=== PATIENT | male | born 1985 | race Caucasian/White ===

== ENCOUNTER 2017-12-17 07:35 | Emergency (ER) | payer OTHER, MEDICAID, SELFPAY ==
[2017-12-17] VITALS (8 sets, daily range): BP systolic 106–140; BP diastolic 57–71; PULSE 49–60; RESP 8–18; TEMP 36.4; O2SAT 100
--- NOTE | 2017-12-17 07:43 | ED.CHESTPAIN ---
HPI - Chest Pain General Chief Complaint: Chest Pain Stated Complaint: CHEST PAIN,TINGLY ARMS Time Seen by Provider: 12/17/17 07:43 Source: patient Mode of arrival: ambulatory Limitations: no limitations History of Present Illness HPI narrative: 32-year-old male with a history of myocarditis and GERD presents with severe chest pain that awakened him from sleep this morning at 7:00 a.m.. He states it felt similar to when he had myocarditis 4 years ago in [place]. His pain lasted for about 5 min. He called the medics and they came and evaluated him. At that time his pain and other symptoms had completely resolved except for some tingling in his arms which began after the chest pain. He notes the chest pain was associated with deep breathing to get through the pain. There is no nausea, vomiting, or diaphoresis. He sent the medics away but when his pain recurred while driving he came to the emergency department. It lasted for 30 sec to a minute and then resolved. While here he had another episode that was witnessed by myself and he was very anxious appearing, tachypneic with deep breathing, and resolved after I reassured him that he was in a safe place and we would help him. We also laid his bed back and he notes this helped with his symptoms. He notes that he was hospitalized for several days in [place] and given ibuprofen and he had an echocardiogram, however he does not remember the results. He has not seen a [facility] in follow-up since that episode, nor has he had recurrence of his symptoms until today. He denies a history of anxiety or panic attacks. He notes that he is breathing deep during these episodes because it helps with the pain, but denies shortness of breath. Duration: intermittent Onset: during rest Pain location: epigastric Severity: severe Related Data Home Medications Medication Instructions Recorded Confirmed omeprazole magnesium [Prilosec OTC] 20 mg PO Q DAY #0 05/03/16 12/17/17 Allergies Allergy/AdvReac Type Severity Reaction Status Date / Time dust mites Allergy Intermediate sneezing, Uncoded 10/16/17 12:38 throat irritation, runny nose, itchy eyes Review of Systems Review of Systems All systems reviewed & are unremarkable except as noted in HPI and below Constitutional Denies chills, Denies fever(s), Denies lethargy and Denies weakness Eyes Denies change in vision, Denies eye discharge, Denies irritation and Denies loss of vision ENT Ears, Nose, Mouth, and Throat: Denies change in voice, Denies neck pain and Denies sore throat Cardiovascular Reports chest pain, Denies irregular heart rhythm, Denies lightheadedness, Denies palpitations, Denies dyspnea, Denies dyspnea on exertion and Denies orthopnea Respiratory Denies cough, Denies dyspnea, Denies dyspnea on exertion and Denies wheezing Gastrointestinal Gastrointestinal: Denies abdominal pain, Denies change in bowel habits, Denies diarrhea, Denies nausea and Denies vomiting Genitourinary Denies hematuria, Denies flank pain, Denies urinary incontinence and Denies urinary urgency Musculoskeletal Denies neck pain Integumentary/Breasts Denies pruritus, Denies erythema, Denies rash and Denies wounds Neurologic Denies confusion, Denies loss of vision and Denies weakness Psychiatric Denies anxiety, Denies confusion, Denies depression, Denies homicidal ideation and Denies suicidal ideation Endocrine Denies palpitations Hematologic/Lymphatic Denies easy bruising Allergic/Immunologic Denies wheezing PFSH Surgical History Status post appendectomy Family History Grandfather Heart disease Mental health problem Mother Hyperlipidemia Grandfather Heart disease Grandmother Cancer Social History Smoking Status: Former smoker Exam Initial Vital Signs Initial Vital Signs: Vital Signs Temperature 97.6 F 12/17/17 07:51 Pulse Rate 56 L 12/17/17 07:51 Respiratory Rate 18 12/17/17 07:51 Blood Pressure 140/57 H 12/17/17 07:51 Pulse Oximetry 100 12/17/17 07:51 Const General: cooperative and well developed Nutritional Appearance: well nourished Orientation: alert, awake, oriented x3 and not confused [facility] Head: normocephalic and atraumatic Ears: external ears normal and TM's normal bilaterally Nose: external nose normal and No nasal discharge Face and sinus: sinuses nontender, face symmetric, no sinus tenderness and No dry mucous membranes Mouth: oral mucosae normal and moist mucous membranes Teeth and gingiva: dentition normal Throat: tonsils normal and uvula midline Eyes General: appearance normal, both eyes and all related structures Eyelids: eyelids normal Conjunctivae: conjunctivae normal Sclera: sclerae normal Pupils: PERRL EOM: EOM intact bilaterally Neck Neck: normal visual inspection, trachea midline, No lymphadenopathy, No midline deformity and No JVD Lymphatic: No lymphedema Chest Chest: normal inspection of the chest Resp Effort & Inspection: normal respiratory effort, able to speak in complete sentences, no respiratory distress and no use of accessory muscles Auscultation: clear to auscultation bilaterally, no rales, no rhonchi and no wheezes Cardio Rate: regular rate Rhythm: regular rhythm Heart Sounds: no click, no gallops, no murmurs and no rubs Pulses: normal peripheral pulses GI Inspection: non-distended Palpation: soft, no hepatosplenomegaly, No guarding, No pulsatile mass and No tender Auscultation: normal bowel sounds Back/Spine/Pelvis Back: No CVA tenderness Cervical Spine: cervical ROM normal and No pain with cervical ROM Thoracic/Lumbar Spine: thoracic and lumbar spine normal to inspection Skin General: no rashes or lesions noted, No jaundice and No petechiae Neuro General: alert, oriented x3, gait normal and no focal motor deficits Speech: speech normal Extrem General: full ROM, no clubbing, cyanosis or edema, no pedal edema and no calf tenderness Psych Appearance: well kempt Mental Status: mental status grossly normal Attitude: cooperative Thought Content: normal and suicidality Judgment: judgment good Course Orders Ordered: ED Orders 12/17/17 12:50 Troponin I Stat Discontinued Medications Al Hydrox/Mg Hydrox/Simethicone 20 ml/ Lidocaine HCl 15 ml 0 ml PO NOW ONE Stop: 12/17/17 10:14 Last Admin: 12/17/17 10:36 Dose: 35 ml Sodium Chloride (Normal Saline 0.9%) 1,000 mls @ 150 mls/hr IV CONT HIMANSHU Last Admin: 12/17/17 08:30 Dose: 150 mls/hr Reevaluation(s) Reevaluation #1: Nurse reported an episode of hypoxia without symptoms down to the mid 80s with a good waveform. Will add on D-dimer. X-ray and other lab work does not show significant abnormalities. Time: 09:14 Reevaluation #2: Discussed patient's x-ray and lab results with the need for repeat troponin. States his pain is slight but coming back a little and is located in the epigastrium. Will try GI cocktail. Patient notes this is different from his usual GERD symptoms. Denies any history of anxiety or panic attacks. Time: 10:13 Reevaluation #3: Symptoms improved somewhat with GI cocktail but have not resolved. Patient's continues to be frustrated and demands repeat troponin (for the 3rd time) and Cardiology consultation. She states that his symptoms presented exactly like this the last time and she is convinced he has myocarditis. According to her research should have troponin performed at 6hrs. Troponin returned negative and patient is discharged with close follow-up instructions. Time: 12:37 Consultations Consultation #1: Discussed patient's care with Dr. Yusuf Santamaria, [facility], who agrees that this is not myocarditis or pericarditis by clinical history and from the workup today. He does not feel that further testing is indicated. (despite this due to patient's 's demands repeat troponin was performed, even the [facility] felt that was not necessary.) Time: 10:36 Vital Signs - 8 hr 12/17/17 11:34 12/17/17 12:03 12/17/17 12:30 Pulse Rate 54 L 49 L 60 Respiratory Rate 8 L 14 18 Blood Pressure Blood Pressure [Left Arm] 111/71 109/60 109/63 Pulse Oximetry 100 100 100 12/17/17 13:04 12/17/17 14:06 12/17/17 14:34 Pulse Rate 57 L 54 L 58 L Respiratory Rate 13 18 16 Blood Pressure 106/65 Blood Pressure [Left Arm] 109/63 106/65 Pulse Oximetry 100 100 100 MDM - Chest Pain Differential Diagnosis Likely pneumothorax, unstable angina pectoris, atypical chest pain, st elevation myocardial infarction, chest pain and other (gerd, panic attack) Lab Data Attestation: I reviewed the patient's lab results. Result diagrams: 12/17/17 07:45 12/17/17 07:45 Lab Results 12/17/17 12/17/17 12/17/17 Range/Units 07:45 07:45 07:45 WBC 8.3 (4.5-11.0) X10^3/uL RBC 5.02 (4.5-5.9) X10^6/uL Hgb 14.9 (13.5-17.5) g/dL Hct 43.4 (41-53) % MCV 86.6 (80-100) fL MCH 29.8 (26-34) PG MCHC 34.4 (30-36) % RDW 13.3 (11.6-14.8) % Plt Count 346 (150-400) X10^3/uL Neut % (Auto) 32.8 L (50-75) % Lymph % (Auto) 53.1 H (25-40) % [place] % (Auto) 10.0 (3-14) % Eos % (Auto) 3.6 (2-4) % Baso % (Auto) 0.5 (0-2) % Neut # (Auto) 2700 L (9744-8226) /uL ESR 3 (0-15) MM/HR D-Dimer < 200 (<230) ng/mL Sodium 143 (137-145) mmol/L Potassium 3.2 L (3.4-5.1) mmol/L Chloride 102 (98-107) mmol/L Carbon Dioxide 25 (22-32) mmol/L BUN 20 (9-20) mg/dL Creatinine 0.70 (0.66-1.25) mg/dL Estimated GFR > 60.0 (>60) mL/min BUN/Creatinine Ratio 28.6 H (6-22) Glucose 107 H (70-100) mg/dL Calcium 9.6 (8.4-10.2) mg/dL Total Bilirubin 0.5 (0.2-1.3) mg/dL AST 67 H (17-59) IU/L ALT 55 (21-72) IU/L Alkaline Phosphatase 65 (38-126) U/L Total Creatine Kinase 101 (55-170) U/L CK-MB (CK-2) 2.51 H (<2.37) ng/mL CK-MB (CK-2) Rel Index 2.5 (1.5-5.0) % Troponin I < 0.012 (0.01-0.034) ng/mL Total Protein 8.0 (6.3-8.2) g/dL Albumin 4.6 (3.5-5.0) g/dL Globulin 3.4 (1.7-4.1) g/dL Albumin/Globulin Ratio 1.4 (1.0-2.8) Lipase 91 (23-300) U/L 12/17/17 12/17/17 Range/Units 09:50 12:50 WBC (4.5-11.0) X10^3/uL RBC (4.5-5.9) X10^6/uL Hgb (13.5-17.5) g/dL Hct (41-53) % MCV (80-100) fL MCH (26-34) PG MCHC (30-36) % RDW (11.6-14.8) % Plt Count (150-400) X10^3/uL Neut % (Auto) (50-75) % Lymph % (Auto) (25-40) % [place] % (Auto) (3-14) % Eos % (Auto) (2-4) % Baso % (Auto) (0-2) % Neut # (Auto) (4932-2575) /uL ESR (0-15) MM/HR D-Dimer (<230) ng/mL Sodium (137-145) mmol/L Potassium (3.4-5.1) mmol/L Chloride (98-107) mmol/L Carbon Dioxide (22-32) mmol/L BUN (9-20) mg/dL Creatinine (0.66-1.25) mg/dL Estimated GFR (>60) mL/min BUN/Creatinine Ratio (6-22) Glucose (70-100) mg/dL Calcium (8.4-10.2) mg/dL Total Bilirubin (0.2-1.3) mg/dL AST (17-59) IU/L ALT (21-72) IU/L Alkaline Phosphatase (38-126) U/L Total Creatine Kinase (55-170) U/L CK-MB (CK-2) (<2.37) ng/mL CK-MB (CK-2) Rel Index (1.5-5.0) % Troponin I < 0.012 < 0.012 (0.01-0.034) ng/mL Total Protein (6.3-8.2) g/dL Albumin (3.5-5.0) g/dL Globulin (1.7-4.1) g/dL Albumin/Globulin Ratio (1.0-2.8) Lipase (23-300) U/L Imaging Data Chest x-ray: Radiologist's impression: PROCEDURE: XR CHEST 2V INDICATIONS: chest pain TECHNIQUE: 2 views of the chest were acquired. COMPARISON: None. FINDINGS: Surgical changes and devices: None. Lungs and pleura: No pleural effusions or pneumothorax. Lungs are clear. Mediastinum: Mediastinal contours are normal. Heart size is normal. Bones and chest wall: No suspicious bony abnormalities. Soft tissues appear unremarkable. IMPRESSION: No acute process. Dictated by: Fernando Padilla M.D. on 12/17/2017 at 8:40 Approved by: Fernando Padilla M.D. on 12/17/2017 at 8:40 ECG Data Attestation: I personally reviewed and interpreted this ECG as follows: Prior ECG tracings: available for review Interpretation: EKG performed at 7:47 a.m. shows sinus rhythm with a rate of 78. No MI depression. No ST elevation, depression, or T-wave inversion. Normal EKG. It should be noted that this was performed on patient was having severe chest pain. MDM Narrative Medical decision making narrative: 32-year-old male presenting with 3 episodes of recurrent severe chest pain that resolved spontaneously. One episode was here in the emergency department and resolved when I asked him to relax for the EKG and told him that everything would be okay. It certainly looked like a panic attack to me, but he was very calm after the event and states that he does not have anxiety. He was concerned about possible myocarditis since he had an episode of this 4 years ago in [place]. Sudden onset of this does not fit with myocarditis or pericarditis and his sed rate is normal. Repeat troponin x3 was normal. Despite my consultation with Cardiology and acquiescing to request for 3rd troponin, his appeared to be incredulous that his heart tests were returning normally and he did not need further cardiac workup. He was evaluated for pulmonary embolus with a negative D-dimer and low Wells score, pneumothorax and pneumonia with a chest x-ray and by vital signs which returned negative for these findings, and for acute coronary syndrome as well. His heart score is 0 and I think he can safely be followed up as an outpatient. I also considered as a potential cause for symptoms and GI cocktail seemed to help somewhat but did not resolve his pain. Also considered cholecystitis or pancreatitis, but lab work was not consistent with these and he did not have significant upper abdominal pain. I discussed importance of follow-up with primary care provider and return precautions given. Discharge Plan Departure Patient Disposition: Home, Self-Care Clinical Impression: Chest pain Discharge Date/Time: 12/17/17 14:34 Interventions: ED Discharge Assessment Last Done: 12/17/17 14:34 Instructions: DI for Chest Pain Activity Restrictions/Additional Instructions: Thank you for trusting us with your care today. Your emergency room evaluation today included an interview, vital signs, physical exam, EKG, chest x-ray, and blood work. No dangerous cause for your chest pain was identified. Please follow up with your primary care provider later this week for re-evaluation. Return to the ER for new or worsening symptoms. A stress test could be considered in follow-up. Prescriptions: No Action omeprazole magnesium [Prilosec OTC] 20 MG tablet,delayed release (DR/EC) 20 mg PO Q DAY Qty: 0 RF: 0 Referrals: aPtti Hermosillo DO [Primary Care Provider] -
--- NOTE | 2017-12-17 08:07 | DI.RAD.S_ITS ---
PROCEDURE: XR CHEST 2V INDICATIONS: chest pain TECHNIQUE: 2 views of the chest were acquired. COMPARISON: None. FINDINGS: Surgical changes and devices: None. Lungs and pleura: No pleural effusions or pneumothorax. Lungs are clear. Mediastinum: Mediastinal contours are normal. Heart size is normal. Bones and chest wall: No suspicious bony abnormalities. Soft tissues appear unremarkable. IMPRESSION: No acute process. Dictated by: Fernando Padilla M.D. on 12/17/2017 at 8:40 Approved by: Fernando Padilla M.D. on 12/17/2017 at 8:40
[2017-12-17 08:19] LABS: Add Manual Diff / Slide Review NO; Basophils Percent Auto 0.5 % (0-2); Eosinophils Percent Auto 3.6 % (2-4); Hematocrit 43.4 % (41-53); Hemoglobin 14.9 g/dL (13.5-17.5); Lymphocytes Percent Auto 53.1 % (25-40); Mean Corpuscular HGB Conc 34.4 % (30-36); Mean Corpuscular Hemoglobin 29.8 PG (26-34); Mean Corpuscular Volume 86.6 fL (80-100); Neutrophils Absolute Auto 2700 /uL (3000-5900); Neutrophils Percent Auto 32.8 % (50-75); Platelet Count 346 X10^3/uL (150-400); Red Blood Cell Count 5.02 X10^6/uL (4.5-5.9); Red Cell Distribution Width 13.3 % (11.6-14.8); White Blood Cell Count 8.3 X10^3/uL (4.5-11.0)
--- NOTE | 2017-12-17 08:22 | PC.NURSE ---
pt states he had another episode, he felt it coming on but it was not as intense as the episode prior. pt states after that episode he started to feel sleepy. this happened while his oxygen sats had dropped. while pt was awake and and i was talking with him his oxygen sats dropped to 85% with a good pleth. placed pt on oxygen 2l
[2017-12-17 08:23] LABS: Alanine Aminotransferase 55 IU/L (21-72); Albumin 4.6 g/dL (3.5-5.0); Albumin Globulin Ratio 1.4 (1.0-2.8); Alkaline Phosphatase 65 U/L (38-126); Aspartate Aminotransferase 67 IU/L (17-59); BUN Creatinine Ratio 28.6 (6-22); Bilirubin Total 0.5 mg/dL (0.2-1.3); Blood Urea Nitrogen 20 mg/dL (9-20); Calcium 9.6 mg/dL (8.4-10.2); Carbon Dioxide 25 mmol/L (22-32); Chloride 102 mmol/L (98-107); Creatine Kinase 101 U/L (55-170); Estimated Glomerular Filt Rate > 60.0 mL/min (>60); Globulin 3.4 g/dL (1.7-4.1); Glucose 107 mg/dL (70-100); HEMOLYSIS 16 (0-50); Lipase 91 U/L (23-300); Potassium 3.2 mmol/L (3.4-5.1); Sodium 143 mmol/L (137-145)
[2017-12-17] MEDS: SODIUM CHLORIDE 0.9% 1,000 ML 150 ML IV (08:30)
[2017-12-17 08:38] LABS: CKMB % Relative Index 2.5 % (1.5-5.0); Creatine Kinase MB 2.51 ng/mL (<2.37)
[2017-12-17 08:40] LABS: Erythrocyte Sedimentation Rate 3 MM/HR (0-15)
[2017-12-17 08:48] LABS: Troponin I < 0.012 ng/mL (0.01-0.034)
[2017-12-17 09:24] LABS: D Dimer < 200 ng/mL (<230)
[2017-12-17 10:18] LABS: Troponin I < 0.012 ng/mL (0.01-0.034)
[2017-12-17] MEDS: MAG HYDROX/ALUMINUM/SIMETH SUS 20 ML, LIDOCAINE VISCOUS 2% 15 ML PO (10:36)
[2017-12-17 13:23] LABS: Troponin I < 0.012 ng/mL (0.01-0.034)
--- NOTE | 2018-01-29 16:27 | PC.NURSE ---
Late Entry for Jesus Ann RN. IV fluid of NS stopped on 12/17/2017 at 1030 with 1000ml infused.
== END 2017-12-17 14:34 | disposition home or self-care (01) ==
PROVIDERS: Emergency Provider Emergency Medicine; PCP Family Medicine
DX: R07.89 Other chest pain (principal)
CPT/HCPCS: 36415; 36591; 71046; 80053; 82550; 82553; 83690; 84484; 85025; 85379; 85651; 93005; 93041; 96360; 96361; 99284; 99285

== ENCOUNTER → 2020-07-25 14:41 | Outpatient (CLI) | payer OTHER, MEDICAID, SELFPAY ==
[2020-07-25 16:51] LABS: COVID19 -Nasal RAPID Negative (Negative)
== END ==
PROVIDERS: PCP Family Medicine; Visit Provider Physician Assistant
DX: Z20.822 Contact with and (suspected) exposure to COVID-19 (principal)
CPT/HCPCS: 87635

== ENCOUNTER → 2020-09-07 16:05 | Outpatient (CLI) | payer OTHER, MEDICAID, SELFPAY ==
--- NOTE | 2020-09-07 16:07 | DI.RAD.S_ITS ---
PROCEDURE: XR FOOT LT MIN 3V INDICATIONS: foot pain TECHNIQUE: 3 views of the foot were acquired. COMPARISON: None. FINDINGS: Bones: No fractures or dislocations. No suspicious bony lesions. Soft tissues: No tibiotalar joint effusion. Achilles tendon appears normal. IMPRESSION: No visualized acute fracture or dislocation. However, if clinical concern and/or pain persist, short interval imaging followup in 7-10 days is recommended, as occult injury cannot be definitively excluded. Dictated by: Randi Prescott M.D. on 09/07/2020 at 16:35 Approved by: Randi Prescott M.D. on 09/07/2020 at 16:35
== END ==
PROVIDERS: PCP Family Medicine; Referring Provider Physician Assistant; Visit Provider Physician Assistant
DX: M79.672 Pain in left foot (principal)
CPT/HCPCS: 73630

== ENCOUNTER → 2021-02-21 17:48 | Outpatient (CLI) | payer OTHER, MEDICAID, SELFPAY ==
[2021-02-21 18:55] LABS: COVID19 -Nasal RAPID Negative (Negative)
== END ==
PROVIDERS: PCP Family Medicine; Visit Provider Physician Assistant
DX: M79.10 Myalgia, unspecified site (principal); R05 Cough; Z20.822 Contact with and (suspected) exposure to COVID-19
CPT/HCPCS: 87635